=== PATIENT | male | born 1975 | race Caucasian/White ===

== ENCOUNTER 2017-04-18 14:23 | Emergency (ER) | payer BC ==
[~2017-04-18 14:23] MED LIST: BISACODYL EC5 M1 PO; DOCUSATE SODIU100 MG PO; FLEXERIL10 MG PO; FLOMAX0.4 M1 PO; IBUPROFEN800 MG PO; PERCOCET 5/321 UDTAB PO; ROBAXIN500 MG PO; SEROQUEL400 MG PO
[2017-04-18 15:08] LABS: URINE SOURCE CLEAN CATCH
[2017-04-18 15:12] LABS: BASOPHIL# 0.2 X10e3 (0-0.3); BASOPHIL% 1.3 % (0-2.5); EOSINOPHIL# 0.1 X10e3 (0-0.7); EOSINOPHIL% 0.4 % (0.0-7.0); HEMATOCRIT 47.4 % (38.0-50.0); HEMOGLOBIN 15.8 gm/dL (13.0-16.0); LYMPHOCYTE# 1.8 X10e3 (1.0-3.5); LYMPHOCYTE% 13.4 % (17.0-45.0); MEAN CELL VOLUME 85.8 FL (83-96); MEAN CORPUSCULAR HEMOGLOBIN 28.6 PG (28-34); MEAN CORPUSCULAR HGB CONC 33.3 g/dL (30-36); MEAN PLATELET VOLUME 8.2 FL (6.5-11.5); MONOCYTE# 0.7 X10e3 (0-1.0); MONOCYTE% 5.3 % (3.0-12.0); NEUTROPHIL% 79.6 % (40-75); PLATELET COUNT 266 X10e3 (140-420); RED BLOOD COUNT 5.53 X10e (3.90-5.60); RED CELL DISTRIBUTION WIDTH 13.5 % (11.0-15.5); WHITE BLOOD COUNT 13.8 X10e3 (4.0-10.5)
[2017-04-18 15:13] LABS: URINE APPEARANCE CLEAR; URINE BILIRUBIN NEG (NEG); URINE BLOOD NEG (NEG); URINE COLOR YELLOW; URINE GLUCOSE >1000 MG/DL (NEG); URINE KETONE TRACE (NEG); URINE LEUKOCYTE ESTERASE NEG (NEG); URINE NITRATE NEG (NEG); URINE PH 5.5 (5-8); URINE PROTEIN NEG (NEG); URINE SPECIFIC GRAVITY 1.036 (1.003-1.035); URINE UROBILINOGEN 0.2 MG/DL (NEG)
[2017-04-18 15:15] LABS: DIFF IND NO
[2017-04-18 15:16] LABS: CULTURE INDICATED? NO
[2017-04-18 16:09] LABS: ARTERIAL BLD GAS O2 SATURATION 89.9 % (90.0-100.0); ARTERIAL BLOOD GAS CARBOXY HB 5.4 %sat (0.0-9.0); ARTERIAL BLOOD GAS HCO3 21.3 mmol/L; ARTERIAL BLOOD GAS MET HB 0.7 %sat (0.0-2.0); ARTERIAL BLOOD GAS PCO2 35.4 mmHg (35.0-45.0); ARTERIAL BLOOD GAS pH 7.388 (7.350-7.450)
[2017-04-18 16:10] LABS: ARTERIAL BLOOD GAS PO2 72.9 mmHg (80.0-100); ARTERIAL DRAW? YES
[2017-04-18 16:11] LABS: ARTERIAL BLOOD GAS ALLEN TEST NORMAL; ARTERIAL BLOOD GAS ART SITE RIGHT RADIAL
[2017-04-18 16:23] LABS: ALBUMIN SERUM 4.3 g/dL (3.5-5.0); BETA HYDROXYBUTYRATE 0.92 MMOL/L (0.02-0.27); BILIRUBIN, DIRECT 0.1 mg/dL (0.0-0.2); BILIRUBIN,INDIRECT 1.3 mg/dL (0.0-0.9); BILIRUBIN,TOTAL 1.4 mg/dL (0.2-2.0); CALCIUM SERUM 9.4 mg/dL (8.4-10.2); GLOM FILT RATE Estimated 93.1 mL/min (>60); POTASSIUM 4.4 mmol/L (3.5-5.1); PROTEIN TOTAL SERUM 7.5 g/dL (6.0-8.3)
== END 2017-04-18 18:08 | disposition left against medical advice (07) ==
LOC: CED 14:23
DX: R73.9 Hyperglycemia, unspecified (principal); F17.200 Nicotine dependence, unspecified, uncomplicated; Z88.0 Allergy status to penicillin
CPT/HCPCS: 36415; 36600; 80048; 80076; 81003; 82010; 82803; 82947; 83036; 83690; 85025; 96360; 99283